=== PATIENT | female | born 1970 | race Caucasian/White ===

== ENCOUNTER → 2016-10-04 | Outpatient (CLI) | payer MEDICAID ==
[2016-10-04 07:38] LABS: Basophils # (A) 0.1 k/uL (0-0.2); Basophils % (A) 1 %; CH 29.9; CHCM 34.8; Eosinophils # (A) 0.2 k/uL (0-0.7); Eosinophils % (A) 2 %; HDW 2.71; HGB 15.1 gm/dL (11.4-16.0); Luc % (Auto) 1; Lymphocytes # (A) 1.9 k/uL (1.0-4.8); Lymphocytes % (A) 25 %; MCH 30.3 pg (25.0-35.0); MCHC 35.1 g/dL (31.0-37.0); MCV 86.3 fL (80.0-100.0); Monocytes # (A) 0.4 k/uL (0-1.0); Monocytes % (A) 5 %; Neutrophils # (A) 5.1 k/uL (1.3-7.7); Neutrophils % (A) 66 %; RBC 4.98 m/uL (3.80-5.40); RDW 12.2 % (11.5-15.5); WBC 7.7 k/uL (3.8-10.6); WBC (Perox) 8.01
[2016-10-04 09:18] LABS: Erythrocyte Sedimentation Rate 8 mm/hr (0-20)
[2016-10-04 12:15] LABS: ANA w/Reflex to Titer NEGATIVE (NEGATIVE)
[2016-10-04 12:17] LABS: ALT 35 U/L (9-52); AST 18 U/L (14-36); Alkaline Phosphatase 58 U/L (38-126); Anion Gap 9 mmol/L; Blood Urea Nitrogen 19 mg/dL (7-17); C Reactive Protein 10.3 mg/L (<10.0); Calcium 9.2 mg/dL (8.4-10.2); Carbon Dioxide 26 mmol/L (22-30); Chloride 106 mmol/L (98-107); Cholesterol 181 mg/dL (<200); Glucose 96 mg/dL (74-99); HDL Cholesterol 62 mg/dL (40-60); Non-African American GFR(MDRD) >60 (>60 ml/min/1.73 sqM); Potassium 4.5 mmol/L (3.5-5.1); Sodium 141 mmol/L (137-145); Total Bilirubin 0.4 mg/dL (0.2-1.3); Total Protein 6.7 g/dL (6.3-8.2); Triglycerides 68 mg/dL (<150)
[2016-10-04 12:18] LABS: Rheumatoid Factor, Qnt <9 IU/mL (<12)
== END | disposition home or self-care (01) ==
LOC: LABWHC1 06:36
PROVIDERS: ATTEND Nurse Practitioner Family
DX: R53.83 Other fatigue (principal); M25.50 Pain in unspecified joint; Z13.220 Encounter for screening for lipoid disorders
CPT/HCPCS: 36415; 80053; 80061; 82306; 83735; 84439; 84443; 85025; 85652; 86038; 86140; 86431

== ENCOUNTER → 2016-10-24 | Outpatient (CLI) | payer MEDICAID ==
--- NOTE | 2016-10-25 12:54 | MM ---
Reason for exam: screening (asymptomatic). Last mammogram was performed 1 year and 5 months ago. History: Patient is nulliparous. Family history of breast cancer in grandmother. Reductions of both breasts, 1998. Physical Findings: A clinical breast exam by your physician is recommended on an annual basis and results should be correlated with mammographic findings. MG 3D Screening Mammo W/Cad Bilateral CC and MLO view(s) were taken. Prior study comparison: June 01, 2015, bilateral MG 3d screening mammo w/cad. December 24, 2013, bilateral MG screening mammo w CAD. There are scattered fibroglandular densities. There is chronic nodularity in the right breast. There is no discrete abnormality. ASSESSMENT: Benign, BI-RAD 2 RECOMMENDATION: Routine screening mammogram of both breasts in 1 year.
== END | disposition home or self-care (01) ==
LOC: RADMAMWWP 07:04
PROVIDERS: ATTEND Family Medicine
DX: Z12.31 Encounter for screening mammogram for malignant neoplasm of breast (principal); M13.0 Polyarthritis, unspecified
CPT/HCPCS: 77063; G0202; 36415; 82164; 82550; 84550; 86140; 86200; 86431; 86812

== ENCOUNTER → 2016-10-24 | Outpatient (CLI) | payer MEDICAID ==
[2016-10-24 13:07] LABS: C Reactive Protein 10.3 mg/L (<10.0); Creatine Kinase 78 U/L (30-135); Uric Acid 4.7 mg/dL (3.7-7.4)
[2016-10-24 13:10] LABS: Rheumatoid Factor, Qnt <9 IU/mL (<12)
[2016-10-25 06:50] LABS: Cyclic Citrullinated Pep IgG 11 UNITS (<20)
[2016-10-25 09:52] LABS: HLA B27 POSITIVE; HLA B27 Comment SEEBELOW
[2016-10-29 11:39] LABS: Mis test requested (Blood) 14-3-3 eta Protein
== END | disposition home or self-care (01) ==
LOC: LABWHC1 12:17
PROVIDERS: ATTEND Physician Assistant
DX: M13.0 Polyarthritis, unspecified (principal)
CPT/HCPCS: 36415; 82164; 82550; 83520; 84550; 86140; 86200; 86431; 86812

== ENCOUNTER → 2016-10-25 | Outpatient (CLI) | payer MEDICAID ==
--- NOTE | 2016-10-25 07:16 | XR ---
EXAMINATION TYPE: XR pelvis AP view DATE OF EXAM ORDERED: 10/25/2016 HISTORY: M13.0 polyarthritis. COMPARISON: None. FINDINGS: Osseous structures about the pelvis are normal. The sacroiliac joints appear normal. The h ip joints are maintained. IMPRESSION: NORMAL PELVIS.
--- NOTE | 2016-10-25 07:17 | XR ---
EXAMINATION TYPE: XR lumbosacral spine min 4V DATE OF EXAM ORDERED: 10/25/2016 HISTORY: M13.0 polyarthritis. COMPARISON: None. FINDINGS: Vertebral body height and alignment are maintained. There is no spondylolysis or spondylol isthesis. Disc spaces are maintained. There is mild facet arthropathy in the lower lumbar facets on t he right. The pedicles are intact. IMPRESSION: 1. NO ACUTE OSSEOUS LESION. 2. MILD FACET ARTHROPATHY ON THE RIGHT
--- NOTE | 2016-10-25 07:18 | XR ---
EXAMINATION TYPE: XR knee complete bilateral DATE OF EXAM ORDERED: 10/25/2016 HISTORY: M13.0 polyarthritis. COMPARISON: None. FINDINGS: Joint spaces are maintained bilaterally. There is no evidence of chondrocalcinosis. No lj nt effusion is seen. IMPRESSION: NORMAL BILATERAL KNEES.
== END | disposition home or self-care (01) ==
LOC: RADXRMAIN 06:37
PROVIDERS: ATTEND Internal Medicine Rheumatology
DX: M46.07 Spinal enthesopathy, lumbosacral region (principal); M13.0 Polyarthritis, unspecified
CPT/HCPCS: 72110; 72170

== ENCOUNTER → 2018-01-27 | Outpatient (CLI) | payer MEDICAID ==
[2018-01-27 07:40] LABS: Basophils # (A) 0.1 k/uL (0-0.2); Basophils % (A) 1 %; Eosinophils # (A) 0.3 k/uL (0-0.7); Eosinophils % (A) 4 %; HCT 43.5 % (34.0-46.0); HGB 13.9 gm/dL (11.4-16.0); Lymphocytes # (A) 2.2 k/uL (1.0-4.8); Lymphocytes % (A) 32 %; MCH 28.2 pg (25.0-35.0); MCHC 32.1 g/dL (31.0-37.0); MCV 88.1 fL (80.0-100.0); Mean Platelet Volume 6.6; Monocytes # (A) 0.4 k/uL (0-1.0); Monocytes % (A) 6 %; Neutrophils # (A) 3.9 k/uL (1.3-7.7); Neutrophils % (A) 56 %; Platelet Count 209 k/uL (150-450); RBC 4.94 m/uL (3.80-5.40); RDW 12.7 % (11.5-15.5)
[2018-01-27 08:34] LABS: Anion Gap 7 mmol/L; Blood Urea Nitrogen 19 mg/dL (7-17); C Reactive Protein 10.8 mg/L (<10.0); Calcium 9.1 mg/dL (8.4-10.2); Carbon Dioxide 26 mmol/L (22-30); Chloride 108 mmol/L (98-107); Cholesterol 155 mg/dL (<200); Glucose 101 mg/dL (74-99); HDL Cholesterol 48 mg/dL (40-60); LDL Cholesterol,Calculated 89 mg/dL (0-99); Potassium 4.8 mmol/L (3.5-5.1); Sodium 141 mmol/L (137-145); Triglycerides 90 mg/dL (<150)
[2018-01-27 10:34] LABS: Erythrocyte Sedimentation Rate 8 mm/hr (0-20)
[2018-01-27 17:15] LABS: Vitamin D 25 Hydroxy 22.6 ng/mL (30.0-100.0)
== END | disposition home or self-care (01) ==
LOC: LABWHC1 06:31
PROVIDERS: ATTEND Nurse Practitioner Family
DX: M25.569 Pain in unspecified knee (principal); Z13.0 Encounter for screening for diseases of the blood and blood-forming organs and certain disorders involving the immune mechanism; Z13.228 Encounter for screening for other metabolic disorders; Z13.220 Encounter for screening for lipoid disorders; Z13.29 Encounter for screening for other suspected endocrine disorder; Z13.21 Encounter for screening for nutritional disorder
CPT/HCPCS: 36415; 80048; 80061; 82306; 84443; 85025; 85652; 86038; 86140

== ENCOUNTER → 2018-02-04 | Outpatient (CLI) | payer MEDICAID ==
--- NOTE | 2018-02-05 13:18 | MM ---
Reason for exam: screening (asymptomatic). Last mammogram was performed 1 year and 3 months ago. History: Patient is nulliparous. Family history of breast cancer in grandmother. Reductions of both breasts, 1998. Physical Findings: A clinical breast exam by your physician is recommended on an annual basis and results should be correlated with mammographic findings. MG 3D Screening Mammo W/Cad Bilateral CC and MLO view(s) were taken. Prior study comparison: October 24, 2016, bilateral MG 3d screening mammo w/cad. June 01, 2015, bilateral MG 3d screening mammo w/cad. There is chronic nodularity in the right breast. No significant changes when compared with prior studies. ASSESSMENT: Benign, BI-RAD 2 RECOMMENDATION: Routine screening mammogram of both breasts in 1 year.
== END | disposition home or self-care (01) ==
LOC: RADMAMWWP 06:55
PROVIDERS: ATTEND Obstetrics & Gynecology
DX: Z12.31 Encounter for screening mammogram for malignant neoplasm of breast (principal); Z80.3 Family history of malignant neoplasm of breast
CPT/HCPCS: 77063; 77067

== ENCOUNTER → 2018-03-17 | Outpatient (CLI) | payer MEDICAID ==
[2018-03-17 16:27] LABS: Progesterone <0.2 ng/mL
== END ==
LOC: LABWHC1 06:57
PROVIDERS: ATTEND Obstetrics & Gynecology
DX: N95.1 Menopausal and female climacteric states (principal); N92.6 Irregular menstruation, unspecified; R61 Generalized hyperhidrosis; R53.83 Other fatigue
CPT/HCPCS: 36415; 82607; 82670; 83001; 84144; 84403; 84439

== ENCOUNTER → 2018-05-29 | Outpatient (CLI) | payer MEDICAID ==
[2018-05-29 07:51] LABS: Anion Gap 8 mmol/L; Blood Urea Nitrogen 14 mg/dL (7-17); Calcium 9.4 mg/dL (8.4-10.2); Carbon Dioxide 25 mmol/L (22-30); Chloride 106 mmol/L (98-107); Glucose 95 mg/dL (74-99); Potassium 4.8 mmol/L (3.5-5.1); Sodium 139 mmol/L (137-145)
[2018-05-29 07:56] LABS: Basophils # (A) 0.1 k/uL (0-0.2); Basophils % (A) 1 %; Eosinophils # (A) 0.2 k/uL (0-0.7); Eosinophils % (A) 2 %; HCT 42.4 % (34.0-46.0); HGB 14.5 gm/dL (11.4-16.0); Lymphocytes # (A) 2.1 k/uL (1.0-4.8); Lymphocytes % (A) 27 %; MCH 29.9 pg (25.0-35.0); MCHC 34.1 g/dL (31.0-37.0); MCV 87.6 fL (80.0-100.0); Mean Platelet Volume 7.3; Monocytes # (A) 0.5 k/uL (0-1.0); Monocytes % (A) 6 %; Neutrophils % (A) 63 %; Platelet Count 214 k/uL (150-450); RBC 4.84 m/uL (3.80-5.40); RDW 12.9 % (11.5-15.5); WBC 7.9 k/uL (3.8-10.6)
== END | disposition home or self-care (01) ==
LOC: LABPAT 06:37
PROVIDERS: ATTEND Urology
DX: R31.0 Gross hematuria (principal)
CPT/HCPCS: 36415; 80048; 85025; 93005

== ENCOUNTER 2018-06-04 06:11 | Day surgery (SDC) | payer MEDICAID ==
[2018-06-03 12:55] VITALS: BMI 38.4
[~2018-06-04 06:11] MED LIST: DEXAMETHASONE SOD PHOSPHATE 10 MG/ML 1 ML VIAL IV ONE; HYDROmorphone 0.5 MG/0.5 ML SYRINGE IVP PRN; LACTATED RINGERS 1,000 ML IV SCH; LIDOCAINE 1% 20 ML VIAL (10MG/ML) FOR IV START INTRADERMA PRN; MIDAZOLAM (PF) 2 MG/2 ML VIAL IV PRN; ONDANSETRON 4 MG/2 ML VIAL IVP ONE; SCOPOLAMINE 1.5MG/72HR PATCH TRANSDERM ONE; ceFAZolin 1,000 MG in DEXTROSE/WATER 1 50ML.BAG IVPB ONE
--- NOTE | 2018-06-04 06:24 | P.GSHP ---
History of Present Illness H&P Date: 05/30/18 Chief Complaint: Hematuria The patient is a 47-year-old white female who experienced gross hematuria in March 2018. A urine culture was positive at that time, and she was treated with antibiotics. The hematuria has resolved. However, a computed tomography scan at that time showed increased density of the left distal ureter, as well as posterior bladder wall thickening. This may be related to the hematuria, but she comes for cystoscopy with left retrograde pyelogram for further evaluation of these findings. - Constitutional Constitutional: Denies chills, Denies fever - Genitourinary (Female) Genitourinary: Denies flank pain - Musculoskeletal Musculoskeletal: bilateral: knee stiffness Past Medical History - Past Family History Mother Family Medical History: No Reported History Medications and Allergies Home Medications Medication Instructions Recorded Confirmed Type No Known Home Medications 06/03/18 06/03/18 History Allergies Allergy/AdvReac Type Severity Reaction Status Date / Time adhesive Allergy Rash/Hives Verified 06/03/18 12:57 tegaderm Allergy Rash/Hives Uncoded 06/03/18 12:57 Surgical - Exam - General well developed, well nourished, no distress - Neck no masses, trachea midline - Respiratory normal respiratory effort, clear to auscultation - Cardiovascular Rhythm: regular Abnormal Heart Sounds: no systolic murmur, no diastolic murmur, no rub, no S3 Gallop, no S4 Gallop, no click, no other - Abdomen Abdomen: soft, non tender, no guarding, no rigid, no rebound - Psychiatric oriented to time, oriented to person, oriented to place, speech is normal, memory intact Results - Imaging CT scan - abdomen: report reviewed, image reviewed Assessment and Plan (1) Hematuria due to acute cystitis Current Visit: No Status: Acute Code(s): N30.01 - ACUTE CYSTITIS WITH HEMATURIA SNOMED Code(s): 897429100405024 (2) Abnormal radiologic findings on diagnostic imaging of renal pelvis, ureter, or bladder Current Visit: No Status: Acute Code(s): R93.41 - ABN RADLGC FIND ON DX IMAGING RENAL PELV, URETER, OR BLDDR SNOMED Code(s): 646651260 Plan: Cystoscopy, left retrograde pyelogram. If a ureteral abnormality is identified , ureteroscopy will be performed. If there are any suspicious lesions within the bladder, bladder biopsy will be performed. This is all been reviewed in detail with the patient. Potential risks were also reviewed, which include anesthesia, bleeding, infection, bladder injury, and ureteral injury.
[2018-06-04] MEDS ORDERED: IOPAMIDOL-370 50ML BTL IRRIGATION ONE ×2 (07:29→08:16)
[2018-06-04] MEDS ORDERED: PROPOFOL 10 MG/ML 20 ML VIAL IV ONE (07:36)
[2018-06-04] MEDS ORDERED: NEOSTIGMINE 1 MG/ML 10 ML VIAL ONE (07:36)
[2018-06-04] MEDS ORDERED: ROCURONIUM BROMIDE 10 MG/ML 10 ML VIAL IV ONE (07:36)
[2018-06-04] MEDS ORDERED: LIDOCAINE 1% INJ 10MG/ML (20 ML MDV) ONE (07:36)
[2018-06-04] MEDS ORDERED: fentaNYL (PF) 50 MCG/ML 2 ML AMP ONE (07:36)
[2018-06-04] MEDS ORDERED: GLYCOPYRROLATE 0.2 MG/ML 2 ML VIAL ONE (07:36)
[2018-06-04] MEDS ORDERED: MIDAZOLAM 2 MG/2 ML VIAL ONE (07:36)
[2018-06-04] MEDS ORDERED: ePHEDrine SULFATE/0.9% NACL/PF 50 MG/5 ML SYRINGE IV ONE (07:36)
--- NOTE | 2018-06-04 08:25 | P.OP ---
Date of Procedure: 06/04/18 Preoperative Diagnosis: Gross hematuria Postoperative Diagnosis: Same Procedure(s) Performed: Cystoscopy, bilateral retrograde pyelograms, left ureteroscopy Anesthesia: JAYSONA Surgeon: Chino Sorensen Estimated Blood Loss (ml): 0 IV fluids (ml): 500 Pathology: none sent Condition: stable Disposition: PACU Indications for Procedure: The patient is a 47-year-old white female who experienced gross hematuria in March 2018. A urine culture was positive at that time, and she was treated with antibiotics. She had a recurrent episode of hematuria on 05/03/2019. A CT scan showed increased density of the left distal ureter, as well as posterior bladder wall thickening. This may be related to the hematuria, and she comes for cystoscopy with left retrograde pyelogram for further evaluation of these findings. Operative Findings: No abnormalities seen. Description of Procedure: The patient was taken to the operating room and placed in the dorsolithotomy position, with legs supported in Sumanth stirrups. The external genitalia was prepped and draped sterilely. The 30 lens was used to introduce the 22-Japanese Stortz cystoscopic sheath through the urethra and into the bladder under direct vision. The bladder was examined in its entirety. Both ureteral orifices were of normal anatomic location and configuration, and clear urine effluxed from both. No tumors or foreign bodies were seen. Using a 10-Japanese cone-tip catheter, bilateral retrograde pyelograms were performed. The course of each ureter was followed on fluoroscopy and appeared normal, as did the intrarenal collecting systems. Specifically, there was no evidence of filling defect or hydronephrosis, and the systems drained promptly. On the left side, the cone-tipped catheter was advanced through the ureteral orifice to dilate the orifice. The A[facility]I semirigid ureteroscope was then passed into the bladder, and ureteroscopy was performed. It was possible to advance the ureteroscope up to the left ureteropelvic junction. No abnormalities were seen. The ureteroscope was withdrawn and the procedure was terminated. The patient tolerated the procedure well was taken to the recovery room in stable condition.
[2018-06-04 08:37] VITALS: TEMP 97.8
--- NOTE | 2018-06-04 08:44 | FL ---
Fluoroscopy HISTORY: Hematuria 1.38 minute fluoroscopy time supplied to the referring clinician. 14 intraoperative C-arm images doc ument the procedure. See dictated report from urology.
[2018-06-04 08:48] VITALS: RESP 16
[2018-06-04 09:54] VITALS: BP 118/85; PULSE 66
== END 2018-06-04 10:26 | disposition home or self-care (01) ==
LOC: OR 06:11
PROVIDERS: ATTEND Urology
DX: N30.01 Acute cystitis with hematuria (principal); R94.8 Abnormal results of function studies of other organs and systems; Z88.9 Allergy status to unspecified drugs, medicaments and biological substances; Z91.048 Other nonmedicinal substance allergy status; E66.9 Obesity, unspecified; Z68.38 Body mass index [BMI] 38.0-38.9, adult; Z90.79 Acquired absence of other genital organ(s)
CPT/HCPCS: 81025; 74420; 52005; C1758; J2250 ×2; J1100; J2710; J2405; J2001; J3010; J0690; J2704; J1170; Q9967

== ENCOUNTER → 2018-09-09 | Outpatient (CLI) | payer MEDICAID ==
--- NOTE | 2018-09-09 16:12 | CT ---
EXAMINATION TYPE: CT brain wo con DATE OF EXAM: 09/09/2018 COMPARISON: None INDICATION: Headaches and nausea after head injury x5 days ago. DLP: 1150 mGycm, Automated exposure control for dose reduction was used. CONTRAST: None CT of the brain is performed utilizing 3 mm thick sections through the posterior fossa and 3 mm thick sections through the remaining calvarium. Study is performed within 24 hours of arrival to the hosp [facility]. No abnormal hyperdensity is present to suggest an acute intracranial hemorrhage. No mass lesion is evident. No acute infarcts are evident. Ventricles and sulci are appropriate for the patient age. Paranasal sinuses and mastoid air cells within the [id number] are clear. IMPRESSIONS: 1. Normal CT Brain
== END | disposition home or self-care (01) ==
LOC: RADCTMAIN 15:43
PROVIDERS: ATTEND Nurse Practitioner Family
DX: S09.90XA Unspecified injury of head, initial encounter (principal)
CPT/HCPCS: 70450

== ENCOUNTER → 2019-03-18 | Outpatient (CLI) | payer MEDICAID ==
[2019-03-18 07:37] LABS: Basophils # (A) 0.1 k/uL (0-0.2); Basophils % (A) 1 %; Eosinophils # (A) 0.2 k/uL (0-0.7); Eosinophils % (A) 3 %; HCT 41.2 % (34.0-46.0); HGB 14.2 gm/dL (11.4-16.0); Lymphocytes # (A) 2.3 k/uL (1.0-4.8); Lymphocytes % (A) 31 %; MCH 29.5 pg (25.0-35.0); MCHC 34.4 g/dL (31.0-37.0); MCV 85.8 fL (80.0-100.0); Mean Platelet Volume 6.4; Monocytes # (A) 0.3 k/uL (0-1.0); Monocytes % (A) 5 %; Neutrophils # (A) 4.2 k/uL (1.3-7.7); Neutrophils % (A) 59 %; Platelet Count 211 k/uL (150-450); RDW 12.4 % (11.5-15.5); WBC 7.2 k/uL (3.8-10.6)
[2019-03-18 08:59] LABS: Appearance,Urine Clear (Clear); Bilirubin,Urine Negative (Negative); Blood,Urine Negative (Negative); Color,Urine Yellow; Glucose,Urine (UA) Negative (Negative); Ketones,Urine Negative (Negative); Leukocyte Esterase,Urine Negative (Negative); Nitrite,Urine Negative (Negative); Protein,Urine Negative (Negative); Specific Gravity,Urine 1.025 (1.001-1.035); Urobilinogen,Urine <2.0 mg/dL (<2.0)
[2019-03-18 12:14] LABS: Albumin 4.1 g/dL (3.80-4.90); Albumin/Globulin Ratio 2.05 (1.60-3.17); Anion Gap 9.4 mmol/L (4.00-12.00); BUN/Creat Ratio 17.5 Ratio (12.00-20.00); Calcium 9.1 mg/dL (8.7-10.3); Carbon Dioxide 26.6 mmol/L (21.6-31.8); Chol/HDL Ratio 3.52; LDL Cholesterol,Calculated 102.8 mg/dL (0.0-131.0); Non-African American GFR(CKD) 87.2 (60.0-200.0); Potassium 3.8 mmol/L (3.5-5.5); Total Bilirubin 0.3 mg/dL (0.2-1.2); Total Protein 6.1 g/dL (6.2-8.2); VLDL Calculation 23.2 mg/dL (5.00-40.00)
[2019-03-18 12:22] LABS: T4, Free (Free Thyroxine) 1.3 ng/dL (0.80-1.80)
[2019-03-18 14:31] LABS: Hemoglobin A1C 6.1 % (4.0-6.0)
== END | disposition home or self-care (01) ==
LOC: LABWHC1 06:34
PROVIDERS: ATTEND Family Medicine
DX: I10 Essential (primary) hypertension (principal)
CPT/HCPCS: 36415; 80053; 80061; 81003; 83036; 84439; 84443; 85025

== ENCOUNTER → 2019-03-26 | Outpatient (CLI) | payer MEDICAID ==
--- NOTE | 2019-03-26 09:16 | CT ---
EXAMINATION TYPE: CT abdomen pelvis wo con DATE OF EXAM: 03/26/2019 COMPARISON: None HISTORY: 48-year-old female Left sided abdominal/pelvic pain CT DLP: 1041.5 mGycm. Automated exposure control for dose reduction was used. TECHNIQUE: Contiguous axial scanning of the abdomen and pelvis without IV contrast. Coronal and sagit niya reconstructions performed. FINDINGS: Heart normal size without pericardial effusion. Lung bases clear without pleural effusion. Slightly low attenuation of the liver may reflect mild fatty infiltration. Otherwise, noncontrast coty earance of the liver, gallbladder, adrenal glands, kidneys, spleen, and pancreas show no gross abnorm ality. No dilated small bowel, free fluid, or free air. Normal appendix. Mild stool burden. Mild diverticular change on the left side of the colon. No ayaz lonic inflammatory change. No mesenteric or retroperitoneal lymphadenopathy. There is subtle perivesicular space stranding especially anteriorly. Pelvic phleboliths. Uterus antev erted. Both ovaries are visualized. No abnormal fluid collection in the pelvis or pelvic lymphadenopa thy. Bones: Mild degenerative changes of the hips. No osseous destructive process. IMPRESSION: 1. Mild strandy density around the anterior aspect of the bladder. Correlate to exclude cystitis. 2. Mild scattered left-sided colonic diverticulosis. No evidence for acute diverticulitis.
== END | disposition home or self-care (01) ==
LOC: RADCTMAIN 07:05
PROVIDERS: ATTEND Family Medicine
DX: K57.30 Diverticulosis of large intestine without perforation or abscess without bleeding (principal); N32.89 Other specified disorders of bladder
CPT/HCPCS: 74176

== ENCOUNTER → 2019-03-26 | Outpatient (CLI) | payer MEDICAID ==
[2019-03-26 13:06] LABS: African American GFR (CKD) 87.6 (60.0-200.0); Anion Gap 13.6 mmol/L (4.00-12.00); BUN/Creat Ratio 22.22 Ratio (12.00-20.00); Calcium 9.3 mg/dL (8.7-10.3); Carbon Dioxide 24.4 mmol/L (21.6-31.8); Potassium 4.2 mmol/L (3.5-5.5)
== END | disposition home or self-care (01) ==
LOC: LABWHC1 06:39
PROVIDERS: ATTEND Family Medicine
DX: R10.9 Unspecified abdominal pain (principal)
CPT/HCPCS: 36415; 80048

== ENCOUNTER → 2020-01-18 | Outpatient (CLI) | payer MEDICAID ==
[2020-01-18 07:50] LABS: Basophils # (A) 0.1 k/uL (0-0.2); Basophils % (A) 1 %; Eosinophils # (A) 0.3 k/uL (0-0.7); Eosinophils % (A) 3 %; HCT 44.3 % (34.0-46.0); HGB 14.7 gm/dL (11.4-16.0); Lymphocytes # (A) 2.3 k/uL (1.0-4.8); Lymphocytes % (A) 28 %; MCHC 33.3 g/dL (31.0-37.0); MCV 87.1 fL (80.0-100.0); Mean Platelet Volume 7.2; Monocytes # (A) 0.4 k/uL (0-1.0); Monocytes % (A) 5 %; Neutrophils # (A) 4.9 k/uL (1.3-7.7); Neutrophils % (A) 61 %; Platelet Count 211 k/uL (150-450); RBC 5.09 m/uL (3.80-5.40); RDW 12.7 % (11.5-15.5)
[2020-01-18 12:29] LABS: African American GFR (CKD) 100.3 (60.0-200.0); Albumin 4.2 g/dL (3.80-4.90); Albumin/Globulin Ratio 1.91 (1.60-3.17); Anion Gap 6.7 mmol/L (4.00-12.00); BUN/Creat Ratio 21.25 Ratio (12.00-20.00); Calcium 9.3 mg/dL (8.7-10.3); Carbon Dioxide 27.3 mmol/L (21.6-31.8); Chol/HDL Ratio 3.45; Globulin 2.2 g/dL (1.6-3.3); LDL Cholesterol,Calculated 86.4 mg/dL (0.0-131.0); Non-African American GFR(CKD) 86.6 (60.0-200.0); Potassium 4.1 mmol/L (3.5-5.5); Total Bilirubin 0.5 mg/dL (0.3-1.2); Total Protein 6.4 g/dL (6.2-8.2); VLDL Calculation 28.6 mg/dL (5.00-40.00)
[2020-01-18 13:10] LABS: T4, Free (Free Thyroxine) 1.2 ng/dL (0.80-1.80)
[2020-01-18 15:20] LABS: Hemoglobin A1C 5.2 % (4.0-6.0)
== END | disposition home or self-care (01) ==
LOC: LABWHC1 07:06
PROVIDERS: ATTEND Family Medicine
DX: Z00.01 Encounter for general adult medical examination with abnormal findings (principal); Z13.220 Encounter for screening for lipoid disorders; Z13.228 Encounter for screening for other metabolic disorders; Z13.29 Encounter for screening for other suspected endocrine disorder; R53.83 Other fatigue; R73.09 Other abnormal glucose; I10 Essential (primary) hypertension
CPT/HCPCS: 36415; 80053; 80061; 82652; 83036; 84439; 84443; 85025

== ENCOUNTER → 2020-04-12 | Outpatient (CLI) | payer MEDICAID ==
--- NOTE | 2020-04-12 14:06 | MM ---
Reason for exam: screening (asymptomatic). Last mammogram was performed 2 years and 2 months ago. History: Patient is nulliparous. Family history of breast cancer in grandmother. Reductions of both breasts, 1998. Physical Findings: A clinical breast exam by your physician is recommended on an annual basis and results should be correlated with mammographic findings. MG 3D Screening Mammo W/Cad Bilateral CC and MLO view(s) were taken. Prior study comparison: February 04, 2018, bilateral MG 3d screening mammo w/cad. October 24, 2016, bilateral MG 3d screening mammo w/cad. There are scattered fibroglandular densities. There is no discrete abnormality. ASSESSMENT: Negative, BI-RAD 1 RECOMMENDATION: Routine screening mammogram of both breasts in 1 year.
== END | disposition home or self-care (01) ==
LOC: RADMAMWWP 10:48
PROVIDERS: ATTEND Family Medicine
DX: Z12.31 Encounter for screening mammogram for malignant neoplasm of breast (principal)
CPT/HCPCS: 77063; 77067